=== PATIENT | female | born 2005 | race Hispanic/Latino ===

== ENCOUNTER 2025-03-16 16:28 | Outpatient (CLI) | payer BC ==
[2025-03-16 17:17] LABS: BHCG - Serum Negative (NEGATIVE); Pregs Control Background? CLEAR/WHITE (CLR/WHITE); Pregs Control Bar Appear? YES (CONTROL BAR)
== END 2025-03-16 16:29 | disposition home or self-care (01) ==
LOC: CT 16:28
PROVIDERS: ATTEND Family Medicine
DX: Z32.02 Encounter for pregnancy test, result negative (principal); R10.9 Unspecified abdominal pain
CPT/HCPCS: 36415; 74176; 84703